=== PATIENT | female | born 1990 | race American Indian/Alaskan Native ===

== ENCOUNTER 2018-08-26 15:21 | Emergency (ER) | payer OTHER ==
[2018-08-26 16:12] VITALS: BMI 32.8
[2018-08-27 13:29] VITALS: BP 106/82; PULSE 81; O2SAT 100
== END 2018-08-26 18:30 | disposition home or self-care (01) ==
LOC: H.EROB2 15:21
DX: O26.92 Pregnancy related conditions, unspecified, second trimester (principal); R10.2 Pelvic and perineal pain; M54.5 Low back pain; Z3A.21 21 weeks gestation of pregnancy